=== PATIENT | female | born 1995 | race African-American/Black ===

== ENCOUNTER 2019-10-03 04:41 | Emergency (ER) | payer MEDICAID ==
[~2019-10-03] VITALS: Ht 170.2 cm; Wt 71.0 kg
[2019-10-03] MEDS ORDERED: TETANUS, DIPHTHERIA, PERTUSSIS VAC/PF 0.5ML (>7YR OLD) IM ONE (06:45)
[2019-10-03] MEDS ORDERED: ACETAMINOPHEN 325MG TABLET PO ONE (06:45)
[2019-10-03] MEDS ORDERED: BACITRACIN ZINC OINT UDPKT TOP ONE (06:45)
[2019-10-03] MEDS ORDERED: HYDROCODONE/ACETAMINOPHEN 5/325MG TABLET PO ONE ×2 (07:00→08:00)
[2019-10-03] MEDS ORDERED: CEPHALEXIN 250MG CAPSULE PO ONE (07:00)
[2019-10-03 08:05] VITALS: BP 102/62
== END 2019-10-03 09:12 | disposition home or self-care (01) ==
LOC: ER 04:41
DX: L02.31 Cutaneous abscess of buttock (principal)
CPT/HCPCS: 90471; 90715; 99284

== ENCOUNTER 2020-10-07 05:29 | Emergency (ER) | payer BC, MEDICAID ==
[~2020-10-07] VITALS: Ht 170.2 cm; Wt 83.2 kg
[2020-10-07 05:51] VITALS: BP 147/89
[2020-10-07] MEDS ORDERED: CEPH500T PO (06:15)
[2020-10-07] MEDS ORDERED: SULFAMETHOXAZOLE/TRIMETHOPRIM 800/160MG TABLET PO ONE (06:15)
[2020-10-07] MEDS ORDERED: TOPUD PO (06:15)
[2020-10-07] MEDS ORDERED: CEPHALEXIN 250MG CAPSULE PO ONE (06:15)
[2020-10-07] MEDS ORDERED: SULF1TAB48 PO (06:15)
== END 2020-10-07 06:44 | disposition home or self-care (01) ==
LOC: ER 05:29
DX: S81.811S Laceration without foreign body, right lower leg, sequela (principal); L03.115 Cellulitis of right lower limb; X99.9XXS Assault by unspecified sharp object, sequela; R00.0 Tachycardia, unspecified
CPT/HCPCS: 99283

== ENCOUNTER 2021-09-08 05:01 | Emergency (ER) | payer BC, MEDICAID ==
[~2021-09-08] VITALS: Ht 165.1 cm; Wt 70.0 kg
[~2021-09-08 05:01] MED LIST: CEPH500T PO; SULF1TAB48 PO; TOPUD PO
[2021-09-08] MEDS ORDERED: ONDANSETRON HCL 4MG/2ML INJ IV STA (05:50)
[2021-09-08] MEDS ORDERED: MORPHINE SULFATE 4 MG/ML CPJ (NOT FOR IM USE) IV STA (05:50)
[2021-09-08] MEDS ORDERED: SODIUM CHLORIDE 0.9% 1,000 ML IV ONE (06:00)
[2021-09-08] MEDS ORDERED: TETRACAINE 0.5% OPHTH DROPS 4ML EACHEYE ONE (06:15)
[2021-09-08] MEDS ORDERED: FLUORESCEIN SODIUM 1MG/STRIP BOTHEYE ONE (06:15)
[2021-09-08 06:40] LABS: BASOPHILS % 0.2 % (0.0-2.0); EOSINOPHILS % 0.1 % (0.0-5.0); HEMOGLOBIN. 13.2 g/dL (12.0-16.0); LYMPHOCYTES % 31.8 % (20.0-50.0); MEAN CORPUSCULAR HEMOGLOBIN 30.5 pg (28.0-32.0); MEAN CORPUSCULAR VOLUME 92.3 fL (81.0-99.0); MEAN PLATELET VOLUME 8.1 fl (7.4-10.4); MONOCYTES % 10.2 % (2.0-8.0); NEUTROPHILS % 57.7 % (40.0-76.0); PLATELET 228 x1000/uL (130-400); RED BLOOD CELL COUNT 4.33 mill/uL (4.2-5.4); RED CELL DISTRIBUTION WIDTH 14.8 % (11.6-14.6)
[2021-09-08 06:52] LABS: CHLORIDE 109 mEq/L (98-107)
[2021-09-08 06:58] LABS: ETHANOL BLOOD 290 mg/dL
[2021-09-08 07:03] LABS: HCG SCREEN NEGATIVE
[2021-09-08 07:10] LABS: *BARBITURATES SCREEN URINE NEGATIVE (NEGATIVE); *BENZODIAZEPINES SCREEN URINE NEGATIVE (NEGATIVE); METHADONE URINE SCREEN NEGATIVE (NEGATIVE); OPIATES URINE SCREEN NEGATIVE (NEGATIVE)
[2021-09-08 07:12] LABS: CANNABINOID URINE SCREEN NEGATIVE (NEGATIVE); PHENCYCLIDINE URINE SCREEN NEGATIVE (NEGATIVE)
[2021-09-08 07:13] LABS: *AMPHETAMINES SCREEN URINE PRESUMTIVE POSITIVE (NEGATIVE); *COCAINE SCREEN URINE PRESUMTIVE POSITIVE (NEGATIVE)
[2021-09-08] MEDS ORDERED: MORPHINE SULFATE 4 MG/ML CPJ (NOT FOR IM USE) IV ONE (07:15)
[2021-09-08] MEDS ORDERED: AMOXICILLIN/POTASSIUM CLAVULANATE 875/125MG TAB PO ONE (08:30)
[2021-09-08] MEDS ORDERED: MORPHINE SULFATE 2 MG/ML CPJ (NOT FOR IM USE) IV ONE (08:30)
[2021-09-08] MEDS ORDERED: AMOX-424 MT (08:31)
[2021-09-08] MEDS ORDERED: IBUP-2029 MT (08:31)
[2021-09-08] MEDS ORDERED: HYDR-4009 MT (08:31)
[2021-09-08 08:49] VITALS: BP 128/86
== END 2021-09-08 09:53 | disposition home or self-care (01) ==
LOC: ER 05:01
DX: S02.69XA Fracture of mandible of other specified site, initial encounter for closed fracture (principal); S05.12XA Contusion of eyeball and orbital tissues, left eye, initial encounter; S62.390A Other fracture of second metacarpal bone, right hand, initial encounter for closed fracture; Y04.2XXA Assault by strike against or bumped into by another person, initial encounter; Y93.89 Activity, other specified; Y92.89 Other specified places as the place of occurrence of the external cause
CPT/HCPCS: 29125; 36415; 70450; 70486; 73130; 80053; 80305; 80320; 83690; 84703; 85025; 96374; 96375; 96376; 99285; J2270; J2405; J7030; Z7610; G0480

== ENCOUNTER 2023-03-28 17:42 | Emergency (ER) | payer BC, MEDICAID ==
[~2023-03-28] VITALS: Ht 170.2 cm; Wt 81.0 kg
[~2023-03-28 17:42] MED LIST changes: +AMOX-424 MT; +HYDR-4009 MT; +IBUP-2029 MT
[2023-03-28 17:56] VITALS: TEMP 98.4; O2SAT 98
[2023-03-28 19:58] VITALS: BP 128/92; PULSE 82; RESP 20
[2023-03-28] MEDS ORDERED: KETOROLAC 30MG/ML VIAL IM ONE (20:00)
== END 2023-03-28 20:56 | disposition left against medical advice (07) ==
LOC: ER 17:42
DX: S01.511A Laceration without foreign body of lip, initial encounter (principal); F12.90 Cannabis use, unspecified, uncomplicated; W19.XXXA Unspecified fall, initial encounter; Y93.89 Activity, other specified; Y92.89 Other specified places as the place of occurrence of the external cause; Y99.8 Other external cause status
CPT/HCPCS: 96372; 99283; J1885; Z7610 ×3

== ENCOUNTER → 2023-05-05 | Emergency (ER) | payer BC ==
[~2023-05-05] VITALS: Ht 165.1 cm; Wt 70.0 kg
[~2023-05-05] MED LIST changes: +DIPHENHYDRAMINE 50MG/ML VIAL IM PRN; +HALOPERIDOL LACTATE 5MG/ML VIAL IM ONE; +LIDOCAINE HCL 1% 20ML VIAL (Pyxis) INJ INFIL ONE; +LORAZEPAM 2MG/ML CPJ IM ONE; +TETANUS, DIPHTHERIA, PERTUSSIS VAC/PF 0.5ML (>10YR OLD) IM ONE
[2023-05-05 07:54] VITALS: O2SAT 98
[2023-05-05 09:16] LABS: BASOPHILS % 0.5 % (0.0-2.0); EOSINOPHILS % 0.1 % (0.0-5.0); HEMATOCRIT. 38.4 % (36.0-48.0); HEMOGLOBIN. 12.8 g/dL (12.0-16.0); MEAN CORPUSCULAR HEMOGLOBIN 30.1 pg (28.0-32.0); MEAN CORPUSCULAR HGB CONC 33.3 g/dL (31.0-37.0); MEAN CORPUSCULAR VOLUME 90.4 fL (81.0-99.0); MEAN PLATELET VOLUME 7.9 fl (7.4-10.4); MONOCYTES % 9.2 % (2.0-8.0); NEUTROPHILS % 55.2 % (40.0-76.0); PLATELET 221 x1000/uL (130-400); RED BLOOD CELL COUNT 4.24 mill/uL (4.2-5.4); RED CELL DISTRIBUTION WIDTH 14.7 % (11.6-14.6); WHITE BLOOD COUNT 6.3 x1000/uL (4.5-11.0)
[2023-05-05 09:26] LABS: CALCIUM 8.8 mg/dL (8.5-10.1); CHLORIDE 110 mEq/L (98-107); INDEX HEMOLYSI 1 (1-3); INDEX ICTERIC 1 (1-4); INDEX LIPEMIC 1 (1-3); POTASSIUM 3.5 mEq/L (3.5-5.1); SODIUM 142 mEq/L (136-145)
[2023-05-05 09:30] LABS: ACETAMINOPHEN <2 ug/mL ug/mL (10-30); CARBON DIOXIDE 23 mEq/L (21-32); CREATININE 1.1 mg/dL (0.6-1.3); ETHANOL BLOOD 282 mg/dL (<10); GLUCOSE 125 mg/dL (70-105); UREA NITROGEN BLOOD 10 mg/dL (7-21)
[2023-05-05 09:40] LABS: HCG SCREEN NEGATIVE
[2023-05-05 10:07] LABS: *AMPHETAMINES SCREEN URINE NEGATIVE (NEGATIVE); *BARBITURATES SCREEN URINE NEGATIVE (NEGATIVE); *BENZODIAZEPINES SCREEN URINE NEGATIVE (NEGATIVE); CANNABINOID URINE SCREEN NEGATIVE (NEGATIVE); ECSTASY MDMA SCREEN URINE NEGATIVE (NEGATIVE); METHADONE URINE SCREEN NEGATIVE (NEGATIVE); OPIATES URINE SCREEN NEGATIVE (NEGATIVE); PHENCYCLIDINE URINE SCREEN NEGATIVE (NEGATIVE)
[2023-05-05 10:17] LABS: *COCAINE SCREEN URINE PRESUMTIVE POSITIVE (NEGATIVE)
[2023-05-07 15:39] VITALS: BP 116/63; PULSE 82; RESP 16; TEMP 98.2
== END ==
LOC: ER 07:50
DX: S81.811A Laceration without foreign body, right lower leg, initial encounter (principal); R45.851 Suicidal ideations; F12.90 Cannabis use, unspecified, uncomplicated; X83.8XXA Intentional self-harm by other specified means, initial encounter; Y93.89 Activity, other specified; Y92.89 Other specified places as the place of occurrence of the external cause; Y99.8 Other external cause status
CPT/HCPCS: 80305; 80048; 80307; 80329; 80320; 84703; 85025; 36415; 73590; 90715; 12001; 90471; 96372; 99291; 87426; J1200; J1630; J3490; J2060; C9803; Z7610 ×3; G0480

== ENCOUNTER 2023-09-28 15:22 | Emergency (ER) | payer BC ==
[~2023-09-28] VITALS: Ht 162.6 cm; Wt 68.0 kg
[~2023-09-28 15:22] MED LIST changes: -DIPHENHYDRAMINE 50MG/ML VIAL IM PRN; -HALOPERIDOL LACTATE 5MG/ML VIAL IM ONE; -LIDOCAINE HCL 1% 20ML VIAL (Pyxis) INJ INFIL ONE; -LORAZEPAM 2MG/ML CPJ IM ONE; -TETANUS, DIPHTHERIA, PERTUSSIS VAC/PF 0.5ML (>10YR OLD) IM ONE
[2023-09-28 15:30] VITALS: BP 156/100; PULSE 101; RESP 20; TEMP 98.4; O2SAT 99
== END 2023-09-28 16:16 | disposition left against medical advice (07) ==
LOC: ER 15:22
DX: R53.1 Weakness (principal); Z53.21 Procedure and treatment not carried out due to patient leaving prior to being seen by health care provider
CPT/HCPCS: 81025; 99281

== ENCOUNTER 2024-11-28 04:05 | Emergency (ER) | payer BC ==
[~2024-11-28] VITALS: Ht 157.5 cm; Wt 61.0 kg
[2024-11-28 04:10] VITALS: O2SAT 100
[2024-11-28 05:22] LABS: BASOPHILS % 0.2 % (0.0-2.0); DIFFERENTIAL COMMENT 0; EOSINOPHILS % 0.5 % (0.0-5.0); HEMATOCRIT. 40.4 % (36.0-48.0); HEMOGLOBIN. 13.1 g/dL (12.0-16.0); LYMPHOCYTES % 45.3 % (20.0-50.0); MEAN CORPUSCULAR HEMOGLOBIN 32.5 pg (28.0-32.0); MEAN CORPUSCULAR HGB CONC 32.4 g/dL (31.0-37.0); MEAN CORPUSCULAR VOLUME 100.5 fL (81.0-99.0); MEAN PLATELET VOLUME 8.3 fl (7.4-10.4); MONOCYTES % 12.2 % (2.0-8.0); NEUTROPHILS % 41.8 % (40.0-76.0); PLATELET 204 x1000/uL (130-400); RED BLOOD CELL COUNT 4.02 mill/uL (4.2-5.4); WHITE BLOOD COUNT 6.7 x1000/uL (4.5-11.0)
[2024-11-28 05:32] LABS: CARBON DIOXIDE 27 mEq/L (21-32); CHLORIDE 110 mEq/L (98-107); POTASSIUM 3.5 mEq/L (3.5-5.1); SODIUM 147 mEq/L (136-145)
[2024-11-28 05:34] LABS: CALCIUM 9.3 mg/dL (8.7-10.4)
[2024-11-28] MEDS: IBUPROFEN 600MG TABLET PO STA (05:34)
[2024-11-28 05:38] LABS: GLUCOSE 130 mg/dL (70-105); UREA NITROGEN BLOOD < 5 mg/dL (9-23)
[2024-11-28 05:49] LABS: ETHANOL BLOOD 345 mg/dL (<10)
[2024-11-28 05:50] LABS: TROPONIN I HIGH SENSITIVITY < 4 ng/L (3.0-34)
[2024-11-28 05:58] LABS: ALANINE AMINOTRANSFERASE 22 IU/L (10-49); ALBUMIN 4.4 g/dL (3.2-4.8); ASPARTATE AMINOTRANSFERASE 34 IU/L (<34); BILIRUBIN DIRECT < 0.1 mg/dL (<=3.0)
[2024-11-28 05:59] LABS: BILIRUBIN TOTAL 0.3 mg/dL (0.1-1.0); PROTEIN TOTAL 7.5 g/dL (6.0-8.3)
[2024-11-28 06:14] LABS: HCG SCREEN NEGATIVE
[2024-11-28 06:36] VITALS: TEMP 36.9
[2024-11-28 06:53] VITALS: BP 132/83; PULSE 116; RESP 19; O2SAT 95
== END 2024-11-28 07:00 | disposition left against medical advice (07) ==
LOC: ER 04:05 → EDBEDREQ 05:38 → ENRESERV 06:50 → ER 07:00
DX: F10.129 Alcohol abuse with intoxication, unspecified (principal); F12.10 Cannabis abuse, uncomplicated; Z79.899 Other long term (current) drug therapy; Y90.8 Blood alcohol level of 240 mg/100 ml or more
CPT/HCPCS: 36415; 71045; 80048; 80076; 80320; 84484; 84703; 85025; 93005; 99291; G0480

== ENCOUNTER 2024-11-30 00:34 | Emergency (ER) | payer BC ==
[~2024-11-30] VITALS: Ht 165.1 cm; Wt 80.0 kg
[2024-11-30 00:41] VITALS: BP 119/73; PULSE 109; RESP 18; TEMP 36.7; O2SAT 99
[2024-11-30] MEDS ORDERED: SODIUM CHLORIDE 0.9% 1,000 ML IV ONE (01:45)
[2024-11-30] MEDS ORDERED: ONDANSETRON HCL 4MG/2ML INJ IV ONE (01:45)
[2024-11-30] MEDS ORDERED: ONDANSETRON HCL 4MG/2ML INJ IV NR (05:00)
== END 2024-11-30 04:55 | disposition left against medical advice (07) ==
LOC: ER 00:34
DX: F10.129 Alcohol abuse with intoxication, unspecified (principal); R11.2 Nausea with vomiting, unspecified; R00.2 Palpitations; Z85.41 Personal history of malignant neoplasm of cervix uteri; Y90.9 Presence of alcohol in blood, level not specified
CPT/HCPCS: 71045; 99283; J7030

== ENCOUNTER 2025-06-19 00:45 | Emergency (ER) | payer BC, MEDICAID ==
[~2025-06-19] VITALS: Ht 170.2 cm; Wt 73.0 kg
[~2025-06-19 00:45] MED LIST changes: +IBUP-1455 MT; -IBUP-2029 MT
[2025-06-19 00:46] VITALS: TEMP 98.2; O2SAT 100
[2025-06-19 02:24] VITALS: BP 128/97; PULSE 90; RESP 17
[2025-06-19] MEDS: HYDROCODONE/ACETAMINOPHEN 5/325MG TABLET PO ONE (02:24)
== END 2025-06-19 02:45 | disposition left against medical advice (07) ==
LOC: ER 00:45
DX: R68.84 Jaw pain (principal); M25.532 Pain in left wrist; F12.90 Cannabis use, unspecified, uncomplicated; F10.90 Alcohol use, unspecified, uncomplicated; F41.9 Anxiety disorder, unspecified; F32.A Depression, unspecified; Y90.9 Presence of alcohol in blood, level not specified
CPT/HCPCS: 81025; 99283